=== PATIENT | female | born 1990 | race Caucasian/White ===

== ENCOUNTER 2018-02-18 21:11 | Emergency (ER) | payer MEDICAID ==
[~2018-02-18] VITALS: Ht 154.9 cm; Wt 67.6 kg
[2018-02-18 22:11] VITALS: Ht 154.9 cm; Wt 67.6 kg
[2018-02-18 23:24] LABS: BASOPHIL % 0.2 % (0-2); PLATELET COUNT 297 x10^3mcL (130-400); RED CELL DISTRIBUTION WIDTH 12.7 % (11.5-14.5)
[2018-02-18 23:27] LABS: UA SPECIFIC GRAVITY 1.025 (1.005-1.035); microscopic required? YES; urine erythrocyte TRACE (NEGATIVE)
[2018-02-19 00:22] VITALS: BP 105/60
== END 2018-02-19 00:22 | disposition home or self-care (01) ==
LOC: ED 21:11
PROVIDERS: Emergency Medicine
DX: O20.0 Threatened abortion (principal); O23.41 Unspecified infection of urinary tract in pregnancy, first trimester; Z3A.01 Less than 8 weeks gestation of pregnancy
CPT/HCPCS: 36415